=== PATIENT | male | born 1960 | race American Indian/Alaskan Native ===

== ENCOUNTER 2018-10-22 09:02 | Outpatient (CLI) | payer OTHER ==
[2018-10-22 09:49] LABS: Blood Urea Nitrogen 16 mg/dL (9-20)
--- NOTE | 2018-10-22 14:05 | Nuclear Medicine Report ---
BONE SCAN: History: Prostate cancer. Comparison: Bone scan dated 06/29/15. CT abdomen pelvis with contrast performed the same day. After injection of isotope, gamma camera imaging of the bony system was done. Normal uptake in the urinary system is seen. A focal area of increased radiotracer uptake has developed in the lateral right seventh rib. There is a focal sclerotic bony lesion in this area on CT performed the same day. There is also a subtle focus of increased radiotracer accumulation in the lateral left fourth rib. This area was not scanned on CT performed same day. No additional areas of suspicious uptake are identified. Mild degenerative uptake in the shoulders, sternoclavicular joints, spine, knees and ankles are noted. IMPRESSION: At least 2 new rib lesions are identified consistent with metastatic disease since the bone scan dated 06/29/15.
--- NOTE | 2018-10-22 14:08 | Cat Scan Report ---
CT ABDOMEN PELVIS WITH CONTRAST: HISTORY: Prostate cancer. COMPARISON: 06/29/15. TECHNIQUE: Helical CT in 1.25mm intervals following IV contrast. Sagittal and coronal reconstructions. FINDINGS: Lung bases: Normal. Liver: Normal. Biliary system: Normal. Pancreas: Normal. Spleen: Normal. Kidneys/ureters/bladder: Normal. Adrenal glands: Normal. Aorta: Normal. Intestines: Normal. Appendix: Not confidently identified. Pelvic viscera: Normal. Ascites: None. Adenopathy: None. Musculoskeletal: A solitary sclerotic bony lesion is identified in the lateral right seventh rib consistent with metastatic disease. No additional bony lesions are detected. IMPRESSION: New blastic lesion in the right seventh rib consistent with metastatic disease. This is a new finding since 2015.
== END 2018-10-22 09:03 | disposition home or self-care (01) ==
LOC: NM 09:02
PROVIDERS: ATTEND Radiology Radiation Oncology
DX: C61 Malignant neoplasm of prostate (principal); E78.00 Pure hypercholesterolemia, unspecified; E11.9 Type 2 diabetes mellitus without complications; Z87.891 Personal history of nicotine dependence
CPT/HCPCS: 36415; 74177; 78306; 82565; 84520; A9503; Q9967